=== PATIENT | male | born 1985 | race Caucasian/White ===

== ENCOUNTER 2016-08-25 09:45 | Day surgery (SDC) | payer OTHER ==
[~2016-08-25 09:45] MED LIST: Buffered Lidocaine 0.9% SYRIN* 5 ML/SYR SYRINGE INTRADERM ONE; Buffered Lidocaine 0.9% SYRIN* 5 ML/SYR SYRINGE ONE; Clindamycin 900 MG IVPREMIX(* 900 MG/50 ML SDV IV ONE; Ketorolac INJ* 30 MG/ML 1 ML VIAL ONE; Sodium Citrate/Citric Acid* 15 ML UDC ONE; Sodium Citrate/Citric Acid* 15 ML UDC PO ONE
[2016-08-25] MEDS ORDERED: Bupivacaine 0.25% EPI 200,000* 30 ML SDV ONE (10:32)
[2016-08-25] MEDS ORDERED: Midazolam* 1 MG/ML 2 ML VIAL (2 MG) ONE (10:42)
[2016-08-25] MEDS ORDERED: fentaNYL* 50 MCG/ML 2 ML VIAL (100 MCG VIAL) ONE ×4 (10:42→14:37)
[2016-08-25] MEDS ORDERED: Atracurium* 10 MG/ML 10 ML VIAL ONE (10:43)
[2016-08-25] MEDS ORDERED: Dexamethasone IV* 4 MG/ML 1 ML (4 MG) ONE (10:43)
[2016-08-25] MEDS ORDERED: Neostigmine Methylsulfate* 2 MG/2 ML SYRINGE ONE (10:43)
[2016-08-25] MEDS ORDERED: Lidocaine 2% PF * 5 ML VIAL ONE (10:43)
[2016-08-25] MEDS ORDERED: Glycopyrrolate IV* 0.2 MG/ML 1 ML VIAL ONE (10:43)
[2016-08-25] MEDS ORDERED: Propofol* 10 MG/ML 20 ML BTL IV PUSH ONE (10:43)
[2016-08-25] MEDS ORDERED: Ondansetron INJ* 2 MG/ML VIAL IV PRN (11:26)
--- NOTE | 2016-08-25 12:06 | PN ---
Progress Note - Progress Note Date of Service: 08/25/16 Note: Brief Operative Note: Preop Dx: Symptomatic cholelithiasis Postop Dx: same Procedure: Laparoscopic cholecystectomy Anesthesia: GET Surgeon: Brittany Asst: MARCO Shen; DAVID Aggarwal EBL: 30 ml Fluids: 1300 ml RL Drains: none Specimen: Gallbladder Findings: dictated
[2016-08-25] MEDS ORDERED: Ondansetron INJ* 2 MG/ML VIAL ONE (12:10)
[2016-08-25] MEDS: fentaNYL* 50 MCG/ML 2 ML VIAL (100 MCG VIAL) IV PRN ×5 (12:11→14:39)
[2016-08-25] MEDS ORDERED: HYDROcodone/ACETAMIN 5-325 MG* 1 TAB PO PRN (12:11)
[2016-08-25] MEDS ORDERED: HYDROcodone/ACETAMIN 5-325 MG* 1 TAB ONE ×2 (13:05→13:58)
[2016-08-25] MEDS ORDERED: HYDROcodone/ACETAMIN 5-325 MG* 1 TAB PO ONE (13:57)
[2016-08-25] MEDS ORDERED: DiMENhydriNATE IV* 50 MG/ML VIAL ONE (15:25)
[2016-08-25 15:27] VITALS: BP 102/62
--- NOTE | 2016-08-25 15:50 | OP ---
CC: [facility] * DATE OF OPERATION: 08/25/16 - SDS DATE OF : 89 SURGEON: Lucas Soto MD MUSEUM DIRECTOR: MARCO King ANESTHESIOLOGIST: Dr. Randy Puckett ANESTHESIA: General anesthetic, local infiltration. PRE-OP DIAGNOSIS: Biliary colic. POST-OP DIAGNOSIS: Biliary colic. OPERATIVE PROCEDURE: Laparoscopic cholecystectomy. DESCRIPTION OF PROCEDURE: The patient was supine in the operating room table. After adequate general anesthetic, compression stocking, Estella Hugger warmer, intravenous antibiotics, the abdomen was clipped and prepped with antiseptic and draped in a sterile fashion. Local infiltrative anesthesia was administered and a small umbilical incision was created. A blunt port cannula was placed. Insufflation was carried out with carbon dioxide. Additional cannulae, 12-mm subxiphoid, and 5-mm right upper quadrant, right anterior axillary line were placed through small stab wounds under direct vision. Gallbladder was tented upward, areolar tissue was taken down off the gallbladder , off the cystic duct and off the cystic artery which were both readily identified, clipped, and divided. The common bile duct was seen and kept out of harm's way. The gallbladder was taken off the liver bed using electrocautery. Hemostasis was obtained using electrocautery. There was no spillage. The gallbladder was removed through the subxiphoid port without difficulty. The operative field was hemostatic. The pneumoperitoneum was allowed to escape. The cannulae were removed. The umbilical fascia was closed with 0-Polysorb and skin with 5-0 Polysorb in all cases followed by Steri- Strips. He tolerated the procedure well, was brought to Recovery in good condition. No complications, no drains. Pathologic specimen gallbladder. Sponge and instrument counts correct. Estimated blood loss is less than 20 mL. [id number]/CPS #: [id number] [facility]
== END 2016-08-25 15:41 | disposition home or self-care (01) ==
LOC: OR 09:45
PROVIDERS: ATTEND Surgery
DX: K81.1 Chronic cholecystitis (principal)
CPT/HCPCS: 88304; A9270-GY; J1100; J1240; J1885; J2250; J2405; J2704; J3010

== ENCOUNTER 2017-01-09 08:57 | Emergency (ER) | payer OTHER ==
[2017-01-09] MEDS ORDERED: Ketorolac INJ* 30 MG/ML 1 ML VIAL IV ONE (09:46)
[2017-01-09] MEDS ORDERED: Ondansetron INJ* 2 MG/ML VIAL IV ONE (09:46)
[2017-01-09] MEDS: NS 0.9% 1000 ML* 2,000 ML IV ONE (10:30)
--- NOTE | 2017-01-09 10:35 | RAD ---
Indication: Left flank pain. CT of the abdomen and pelvis was performed without oral or IV contrast demonstration. Coronal and sagittal reconstructed images were obtained. The lung bases demonstrate no pleural fluid, nodules or masses. Heart is of normal size without evidence of pericardial Liver is normal in size. No focal lesions or intrahepatic ductal dilatation is noted. Patient status post cholecystectomy. The spleen is mildly enlarged. No focal lesions are noted in the spleen. Pancreas demonstrates no mass or pancreatic lesion. No adrenal lesions are noted. The left kidney demonstrates fullness of left renal collecting system. There is a tiny calculus of the left ureterovesicular junction measuring approximately 2 mm. The right ureter is otherwise unremarkable. The bladder is markedly. The patient status post appendectomy. No hernias are noted. IMPRESSION: 2 mm calculus in the left ureterovesicular Junction with mild fullness of left renal collecting system. Postoperative changes in the right lower quadrant. Mild splenomegaly. Patient is status post cholecystectomy.
[2017-01-09 10:48] LABS: Hematocrit 46 % (42-52); Hemoglobin 15.9 g/dl (14.0-18.0); Mean Corpuscular HGB Conc 35 g/dl (31-36); Mean Corpuscular Hemoglobin 29 pg (27-31); Mean Corpuscular Volume 83 fL (80-94); Mean Platelet Volume 9 um3 (7.4-10.4); Red Blood Count 5.53 10^6/ul (4.0-5.4); Red Cell Distribution Width 13 % (10.5-15); White Blood Count 8.8 10^3/ul (3.5-10.8)
[2017-01-09 10:58] LABS: ALT 24 U/L (7-52); AST 26 U/L (13-39); Albumin 4.7 g/dL (3.2-5.2); Alkaline Phosphatase 57 U/L (34-104); Anion Gap 5 mmol/L (2-11); Blood Urea Nitrogen 15 mg/dL (6-24); C Reactive Protein < 1.00 mg/L (< 5.00); CO2 Carbon Dioxide 28 mmol/L (22-32); Calcium 9.8 mg/dL (8.6-10.3); Chloride 105 mmol/L (101-111); EGFR African American 158.3 (>60); EGFR Non-African American 123.1 (>60); Globulin 2.2 g/dL (2-4); Glucose 96 mg/dL (70-100); Lipase 50 U/L (11.0-82.0); Potassium 4.1 mmol/L (3.5-5.0); Sodium 138 mmol/L (133-145); Total Protein 6.9 g/dL (6.4-8.9)
[2017-01-09 11:57] LABS: Urine Bacteria Absent (Absent); Urine Bilirubin Negative (Negative); Urine Glucose Negative (Negative); Urine Nitrite Negative (Negative)
[2017-01-09] MEDS ORDERED: Morphine INJ* 4 MG/ML 1 ML CARPUJECT IV ONE (12:43)
[2017-01-09] MEDS ORDERED: Tamsulosin CAP* 0.4 MG PO ONE (13:02)
[2017-01-09 13:23] VITALS: BP 150/74
--- NOTE | 2017-01-09 18:35 | ED ---
Derek Valverde Alfonso, scribed for Blaise Sidhu MD on 01/09/17 at 1012 . Abdominal Pain/Male - HPI Summary HPI Summary: This patient is a 31 year old M presenting to [facility] with a chief complaint of left flank pain since 90 minutes ago. The patient rates the sharp and throbbing pain 8/10 in severity. Symptoms aggravated and alleviated by nothing. Patient reports N/V, urinary retention, and hematuria. - History of Current Complaint Chief Complaint: EDAbdPain Stated Complaint: LT FLANK PAIN,URINATING BLOOD Time Seen by Provider: 01/09/17 09:15 Hx Obtained From: Patient Onset/Duration: Sudden Onset, Lasting Minutes - 90, Still Present Timing: Constant Severity Currently: Severe Pain Intensity: 8 Pain Scale Used: 0-10 Numeric Location: Flank - L Character: Sharp, Other: - Throbbing Aggravating Factor(s): Nothing Alleviating Factor(s): Nothing Associated Signs And Symptoms: Positive: Other - N/V, urinary retention, and hematuria. - Allergies/Home Medications Allergies/Adverse Reactions: Allergies Allergy/AdvReac Type Severity Reaction Status Date / Time Penicillins Allergy Rash Verified 08/25/16 09:57 PMH/Surg Hx/FS Hx/Imm Hx Endocrine/Hematology History: Denies: Hx Diabetes, Hx Thyroid Disease Cardiovascular History: Denies: Hx Hypertension, Other Cardiovascular Problems/Disorders Respiratory History: Denies: Hx Asthma, Hx Chronic Obstructive Pulmonary Disease (COPD), Other Respiratory Problems/Disorders GI History: Denies: Hx Ulcer, Other GI Disorders History: Reports: Hx Kidney Stones - SINCE 2009 and currently Denies: Other Problems/Disorders Sensory History: Reports: Hx Contacts or Glasses - glasses Denies: Hx Hearing Aid Opthamlomology History: Reports: Hx Contacts or Glasses - glasses Neurological History: Denies: Other Neuro Impairments/Disorders - Surgical History Surgery Procedure, Year, and Place: appendectomy, , 2005 ight shoulder surgery x2 2002, 2003 Hx Anesthesia Reactions: No Infectious Disease History: No Infectious Disease History: Denies: Hx Hepatitis, Hx Human Immunodeficiency Virus (HIV), Traveled Outside the [place] in Last 30 Days - Family History Known Family History: Positive: Other - reviewed & noncontributory - Social History Alcohol Use: Weekly Hx Substance Use: No Substance Use Type: Reports: None Hx Tobacco Use: No Smoking Status (MU): Never Smoked Tobacco Review of Systems Negative: Fever Positive: Abdominal Pain - L flank, Vomiting Positive: other - urinary retention, and hematuria. All Other Systems Reviewed And Are Negative: Yes Physical Exam - Summary Physical Exam Summary: VITAL SIGNS: Reviewed. GENERAL: Patient is a well-developed and nourished male who is lying in pain distress in the stretcher. Patient is not in any acute respiratory distress. HEAD AND FACE: Normocephalic and atraumatic. EYES: PERRLA, EOMI x 2, No injected conjunctiva. EARS: Hearing grossly intact. Ear canals and tympanic membranes are WNL. MOUTH: Oropharynx within normal limits. NECK: Supple, trachea is midline, no adenopathy, no JVD. CHEST: Symmetric, no tenderness at palpation LUNGS: Clear to auscultation bilaterally. No wheezing or crackles. CVS: RRR, S1 and S2 present, no murmurs or gallops appreciated. ABDOMEN: Soft, Left CVA tenderness. No signs of distention. Positive bowel sounds. No rebound no guarding, and no masses palpated. No abdominal bruit or pulsations. EXTREMITIES: FROM in all major joints, no edema, no cyanosis or clubbing. NEURO: Alert and oriented x 3. No acute neurological deficits. Speech is normal. SKIN: Dry and warm Triage Information Reviewed: Yes Vital Signs On Initial Exam: Initial Vitals Temp Pulse Resp BP Pulse Ox 97.0 F 80 16 141/84 99 01/09/17 08:58 01/09/17 08:58 01/09/17 08:58 01/09/17 08:58 01/09/17 08:58 Vital Signs Reviewed: Yes - Allen Coma Scale Coma Scale Total: 15 Diagnostics - Vital Signs Vital Signs Temp Pulse Resp BP Pulse Ox 01/09/17 08:58 97.0 F 80 16 141/84 99 - Laboratory Result Diagrams: 01/09/17 10:15 01/09/17 10:15 Lab Statement: Any lab studies that have been ordered have been reviewed, and results considered in the medical decision making process. - CT A/P CT Interpretation Completed By: Radiologist - 2 mm calculus in the left ureterovesicular Junction with mild fullness of left renal collecting system. Postoperative changes in the right lower quadrant. Mild splenomegaly. Patient is status post cholecystectomy. ED physician has reviewed this radiology report and agrees. Abdominal Pain Fem Course/Dx - Course Assessment/Plan: This patient is a 31 year old M presenting to [facility] with a chief complaint of left flank pain since 90 minutes ago. The patient rates the sharp and throbbing pain 8/10 in severity. Symptoms aggravated and alleviated by nothing. Patient reports N/V, urinary retention, and hematuria. CT A/P reveals, per radiologist, 2 mm calculus in the left ureterovesicular Junction with mild fullness of left renal collecting system. Postoperative changes in the right lower quadrant. Mild splenomegaly. Patient is status post cholecystectomy. ED physician has reviewed this radiology report and agrees. Test results with no significant abnormalities and urinalysis negative for UTI. In the ED course the patient was given IV fluids, toradol for the pain, and Flomax. After this, his symptoms improved, but hedeveloped some more pain, therefore he was given morphine. After morphine he was asymptomatic. He was observed for a couple of hours and his symptoms did not return. Therefore, the patient will be discharged with prescription for Zofran, Percocet, and Flomax, and follow up from Urology and PCP. The patient is agreeable with this plan. The patient is hemodynamically stable, alert and oriented x3. - Diagnoses Provider Diagnoses: Kidney stone Discharge - Discharge Plan Condition: Stable Disposition: HOME Prescriptions: Ondansetron TAB* [Zofran 4 MG Tab*] 4 mg PO Q6H PRN #10 tab PRN Reason: Vomiting oxyCODONE/Acetamin 5/325 MG* [Percocet 5/325 TAB*] 1 tab PO Q6H PRN #12 tab MDD 4 PRN Reason: Pain Tamsulosin HCl [Flomax] 0.4 mg PO PC #7 cap Patient Education Materials: Kidney Stones (ED) Referrals: Marlene Garibay DO [Primary Care Provider] - 3 Days Jose Angel Bruno MD [Medical Doctor] - 3 Days Additional Instructions: RETURN TO THE EMERGENCY DEPARTMENT FOR CHANGING OR WORSENING SYMPTOMS. The documentation as recorded by the Derek borjas Alfonso accurately reflects the service I personally performed and the decisions made by Nahum shu Walter, MD.
== END 2017-01-09 13:21 | disposition home or self-care (01) ==
LOC: ED 08:57
DX: N20.0 Calculus of kidney (principal); Z87.442 Personal history of urinary calculi; R16.1 Splenomegaly, not elsewhere classified; Z90.49 Acquired absence of other specified parts of digestive tract; R33.9 Retention of urine, unspecified; R31.9 Hematuria, unspecified; R11.2 Nausea with vomiting, unspecified; Z88.0 Allergy status to penicillin
CPT/HCPCS: 36415; 74176; 80053; 81003; 81015; 83690; 85025; 86140; 96374; 96375; 99283; J1885; J2270; J2405

== ENCOUNTER 2018-01-31 13:09 | Emergency (ER) | payer OTHER ==
--- NOTE | 2018-01-31 13:15 | ED ---
Skin Complaint - HPI Summary HPI Summary: The pt is a 32 y/o male presenting to [facility] c/o hydrofluoric acid exposure on his distal bilateral upper extremities prior to arrival.The acid was dilute (1: 100). He denies UE pain, CP, tingling, and numbness. The cloth lab coat and gloves he had at the time of the accident are intact. He immediate rinsed it with water and applied a calcium-containing gel on the exposure site. Home Medications Medication Instructions Recorded Confirmed Type Sabina Carbonate TAB* 900 mg PO QPM 08/24/16 08/25/16 History Hydrocodone/Acetaminophen [[place] 2 tab PO Q4HR PRN #20 tab MDD 8 08/25/16 Rx 5-325 mg] Ondansetron TAB* [Zofran 4 MG Tab*] 4 mg PO Q6H PRN #10 tab 01/09/17 Rx Tamsulosin HCl [Flomax] 0.4 mg PO PC #7 cap 01/09/17 Rx oxyCODONE/Acetamin 5/325 MG* 1 tab PO Q6H PRN #12 tab MDD 4 01/09/17 Rx [Percocet 5/325 TAB*] Omeprazole CAP* [Prilosec CAP* 20 20 mg PO BID #30 cap.dr 10/29/17 Rx MG] Ondansetron ODT TAB* [Zofran 4 MG 4 mg PO Q6H PRN #10 tab.odt 10/29/17 Rx Odt TAB*] - History of Current Complaint Stated Complaint: EXPOSURE TO ACID Hx Obtained From: Patient Onset/Duration: Started Minutes Ago - CLINICAL ABSTRACTOR Onset Severity: Mild Current Severity: None Pain Intensity: 0 Pain Scale Used: 0-10 Numeric Skin Location: Hand, Other: - bilateral wrists Aggravating Symptom(s): Nothing Alleviating Symptom(s): Nothing Related History: Other: - Hydroflouric acid exposure - Allergy/Home Medications Allergies/Adverse Reactions: Allergies Allergy/AdvReac Type Severity Reaction Status Date / Time Penicillins Allergy Severe Anaphylatic Verified 10/29/17 13:18 Shock PMH/Surg Hx/FS Hx/Imm Hx Previously Healthy: No Endocrine/Hematology History: Denies: Hx Diabetes, Hx Thyroid Disease Cardiovascular History: Denies: Hx Hypertension, Other Cardiovascular Problems/Disorders Respiratory History: Denies: Hx Asthma, Hx Chronic Obstructive Pulmonary Disease (COPD), Other Respiratory Problems/Disorders GI History: Denies: Hx Ulcer, Other GI Disorders History: Reports: Hx Kidney Stones - SINCE 2009 and currently Denies: Hx Renal Disease, Other Problems/Disorders Sensory History: Reports: Hx Contacts or Glasses - glasses Denies: Hx Hearing Aid Opthamlomology History: Reports: Hx Contacts or Glasses - glasses Neurological History: Denies: Other Neuro Impairments/Disorders - Cancer History Cancer Type, Location and Year: None reported - Surgical History Surgery Procedure, Year, and Place: appendectomy, , 2005 ight shoulder surgery x2 2002, 2003 Hx Anesthesia Reactions: No Infectious Disease History: Denies: Hx Hepatitis, Hx Human Immunodeficiency Virus (HIV) - Family History Known Family History: Negative: Hypertension, Diabetes - Social History Occupation: Student Lives: Dormitory/Roommates Alcohol Use: Daily Alcohol Amount: 1 -2 drinks Hx Substance Use: No Substance Use Type: Reports: None Hx Tobacco Use: No Smoking Status (MU): Never Smoked Tobacco Review of Systems Negative: Chest Pain Skin: Negative - Bilateral UE pain at the exposure site Neurological: Negative - Tingling Negative: Numbness All Other Systems Reviewed And Are Negative: Yes Physical Exam - Summary Physical Exam Summary: Constitutional: Well-developed, Well-nourished, Alert. (-) Distressed Skin: Dry, Both hands are cool to touch HENT: Normocephalic; Atraumatic Eyes: Conjunctiva normal Neck: Musculoskeletal ROM normal neck. (-) JVD, (-) Stridor, (-) Tracheal deviation Cardio: Rhythm regular, rate normal, Heart sounds normal; Intact distal pulses; The pedal pulses are 2+ and symmetric. Radial pulses are 2+ and symmetric. (-) Murmur Pulmonary/Chest wall: Effort normal. (-) Respiratory distress, (-) Wheezes, (-) Rales Abd: Soft, (-) epigastric tenderness, (-) Distension, (-) Guarding, (-) Rebound Musculoskeletal: (-) Edema, Capillary refill is less than 2 seconds Lymph: (-) Cervical adenopathy Neuro: Alert, Oriented x3 Psych: Mood and affect Normal Triage Information Reviewed: Yes Vital Signs On Initial Exam: Initial Vital Signs Temp 99.2 F 01/31/18 13:10 Pulse 94 01/31/18 13:10 Resp 20 01/31/18 13:10 BP 154/84 01/31/18 13:10 Pulse Ox 97 01/31/18 13:10 Vital Signs Reviewed: Yes Diagnostics - Laboratory Result Diagrams: 01/31/18 13:37 01/31/18 15:37 Lab Statement: Any lab studies that have been ordered have been reviewed, and results considered in the medical decision making process. - EKG 13:48 Cardiac Rate: NL - 82 bpm EKG Rhythm: Sinus Rhythm Summary of EKG Findings: No STEMI. Re-Evaluation - Re-Evaluation First Eval Re-Evaluation Time: 13:21 Change: Unchanged Course/Dx - Course Course Of Treatment: A 32 year-old M presents to the ED with a CC of hydrofluoric acid exposure on his bilateral upper extremities prior to arrival. The acid was dilute (1:100). He denies UE pain, CP, tingling, and numbness. The cloth lab coat and gloves he had at the time of the accident are intact. He rubbed calcium gel on the site. A physical exam revealed that both hands are cool to touch and capillary refill is less than 2 seconds. An EKG is unremarkable. There is low probability of wrist exposure. The hydrofluoric acid concentration was 0.5-1 %. Nitrile gloves are protective and he had a lab coat on. Patient will be discharged with a final Dx of hydrofluoric acid exposure. Pt is agreeable with this plan. Allergies noted. - Diagnoses Provider Diagnoses: Accidental exposure to hydrofluoric acid Discharge - Sign-Out/Discharge Documenting (check all that apply): Patient Departure - DC - Discharge Plan Condition: Stable Disposition: HOME Patient Education Materials: Chemical Skin Burn (ED) Referrals: Marlene Garibay DO [Primary Care Provider] - [facility] - [place] [facility] [Medical Doctor] - Additional Instructions: Follow up with [facility] in 1-2 days. Return to the emergency room in case of any blistering. - Billing Disposition and Condition Condition: STABLE Disposition: Home - Attestation Statements Document Initiated by Scribe: Yes Documenting Scribe: Kimber Grant Provider For Whom Scribe is Documenting (Include Credential): Dr. Archie Miguel MD Scribe Attestation: Kimber Valverde , scribed for Dr. Archie Miguel MD on 01/31/18 at 2135. Scribe Documentation Reviewed: Yes Provider Attestation: The documentation as recorded by the scribe, Kimber Grant accurately reflects the service I personally performed and the decisions made by me, Dr. Archie Miguel MD Status of Scribe Document: Viewed
[2018-01-31 13:58] LABS: ABS Basophils 0 10^3/ul (0-0.2); ABS Eosinophils 0.1 10^3/ul (0-0.6); ABS Lymphocytes 1.1 10^3/ul (1.0-4.8); ABS Monocytes 0.2 10^3/ul (0-0.8); ABS Neutrophils 4.9 10^3/ul (1.5-7.7); ABS Nucleated RBC 0 10^3/ul; Eosinophil % 0.8 %; Hematocrit 46 % (42-52); Hemoglobin 15.5 g/dl (14.0-18.0); Lymphocyte % 17.3 %; Mean Corpuscular HGB Conc 34 g/dl (31-36); Mean Corpuscular Hemoglobin 29 pg (27-31); Mean Corpuscular Volume 85 fL (80-94); Mean Platelet Volume 8.5 fL (7.4-10.4); Nucleated Red Blood Cells % 0.1; Platelet Count 183 10^3/ul (150-450); Red Blood Count 5.37 10^6/ul (4.00-5.40); Red Cell Distribution Width 13 % (10.5-15); White Blood Count 6.3 10^3/ul (3.5-10.8)
[2018-01-31 14:15] LABS: EGFR Non-African American 107.3 (>60)
[2018-01-31 14:17] LABS: Urine Appearance Clear; Urine Blood Negative (Negative); Urine Color Straw; Urine Ketones Negative (Negative); Urine Protein Negative (Negative); Urine Specific Gravity 1.004 (1.010-1.030); Urine Urobilinogen Negative (Negative)
[2018-01-31 16:10] LABS: EGFR Non-African American 99.1 (>60)
[2018-01-31 18:12] VITALS: BP 162/96
== END 2018-01-31 17:24 | disposition home or self-care (01) ==
LOC: ED 13:09
DX: Z77.098 Contact with and (suspected) exposure to other hazardous, chiefly nonmedicinal, chemicals (principal); Z88.0 Allergy status to penicillin
CPT/HCPCS: 36415; 80053; 80320; 80329; 81003; 83605; 85025; 93005; 99282; G0480

== ENCOUNTER 2018-04-17 15:48 | Emergency (ER) | payer OTHER ==
[2018-04-17 16:28] LABS: ABS Basophils 0 10^3/ul (0-0.2); ABS Eosinophils 0.1 10^3/ul (0-0.6); ABS Lymphocytes 1.5 10^3/ul (1.0-4.8); ABS Monocytes 0.3 10^3/ul (0-0.8); ABS Neutrophils 5.4 10^3/ul (1.5-7.7); ABS Nucleated RBC 0 10^3/ul; Eosinophil % 1.1 %; Hematocrit 48 % (42-52); Hemoglobin 16.1 g/dl (14.0-18.0); Mean Corpuscular HGB Conc 34 g/dl (31-36); Mean Corpuscular Hemoglobin 29 pg (27-31); Mean Corpuscular Volume 85 fL (80-94); Mean Platelet Volume 7.9 fL (7.4-10.4); Nucleated Red Blood Cells % 0.1; Platelet Count 192 10^3/ul (150-450); Red Cell Distribution Width 13 % (10.5-15); White Blood Count 7.3 10^3/ul (3.5-10.8)
[2018-04-17 16:46] LABS: ALT 30 U/L (7-52); AST 21 U/L (13-39); Albumin 4.9 g/dL (3.2-5.2); Albumin/Globulin Ratio 2.2 (1-3); Alkaline Phosphatase 60 U/L (34-104); Anion Gap 5 mmol/L (2-11); Blood Urea Nitrogen 13 mg/dL (6-24); C Reactive Protein < 1.00 mg/L (<8.01); CO2 Carbon Dioxide 28 mmol/L (22-32); Calcium 9.4 mg/dL (8.6-10.3); Chloride 105 mmol/L (101-111); EGFR African American 135.4 (>60); EGFR Non-African American 111.9 (>60); Globulin 2.2 g/dL (2-4); Glucose 105 mg/dL (70-100); Potassium 3.8 mmol/L (3.5-5.0); Sodium 138 mmol/L (135-145); Total Protein 7.1 g/dL (6.4-8.9)
[2018-04-17 17:09] LABS: Urine Appearance Clear; Urine Bilirubin Negative (Negative); Urine Blood Negative (Negative); Urine Color Yellow; Urine Glucose Negative (Negative); Urine Ketones Negative (Negative); Urine Nitrite Negative (Negative); Urine Protein Negative (Negative); Urine Specific Gravity 1.009 (1.010-1.030); Urine Urobilinogen Negative (Negative)
[2018-04-17] MEDS ORDERED: NS 0.9% 1000 ML** 1,000 ML IV ONE (17:21)
[2018-04-17] MEDS ORDERED: HYDROmorphone INJ1* 1 MG/ML SYRINGE IV SLOW PU ONE (17:21)
[2018-04-17] MEDS ORDERED: Ondansetron INJ* 2 MG/ML VIAL IV ONE (17:21)
[2018-04-17] MEDS ORDERED: Ketorolac INJ* 30 MG/ML 1 ML VIAL IV PUSH ONE (17:21)
--- NOTE | 2018-04-17 17:21 | ED ---
GI/ HPI - HPI Summary HPI Summary: Bartolo is a 32 y/o M present to ED with complaints of left flank pain onsetting this morning at 0600. He notes that the pain awoke him, he states that pain has been constant. Hematuria, difficulty voiding are also reported. PMHx of kidney stones; however, he notes that with previous episodes the pain would be intermittent as opposed to constant. Pain is described as a pressure. He notes that movement, deep breaths aggravates Sx, lying still alleviates pain. Patient took 800 mg ibuprofen at 1000 today. PSHx of appendectomy, two shoulder repairs , cholecystectomy. On triage, pain is rated 8/10. Home medications and allergies are reviewed. - History of Current Complaint Chief Complaint: EDFlankPain Time Seen by Provider: 04/17/18 17:13 Stated Complaint: FLANK PAIN Hx Obtained From: Patient Onset/Duration: Started Hours Ago - ONSET 0600 TODAY, Still Present Timing: Constant, Lasting Hours - ONSET 0600 TODAY Severity: Severe - 8/10 Current Severity: Severe - 8/10 Pain Intensity: 8 Location of Pain: Flank - LEFT Pain Characteristics: Pressure Associated Signs and Symptoms: Positive: Hematuria, Flank Pain - LEFT, Other: - POSITIVE - DIFFICULTY VOIDING Aggravating Factor(s): Movement, Deep Breaths Alleviating Factor(s): Rest - lying still - Allergy/Home Medications Allergies/Adverse Reactions: Allergies Allergy/AdvReac Type Severity Reaction Status Date / Time Penicillins Allergy Severe Anaphylatic Verified 04/17/18 15:59 Shock PMH/Surg Hx/FS Hx/Imm Hx Endocrine/Hematology History: Denies: Hx Diabetes, Hx Thyroid Disease Cardiovascular History: Denies: Hx Hypertension, Other Cardiovascular Problems/Disorders Respiratory History: Denies: Hx Asthma, Hx Chronic Obstructive Pulmonary Disease (COPD), Other Respiratory Problems/Disorders GI History: Denies: Hx Ulcer, Other GI Disorders History: Reports: Hx Kidney Stones - SINCE 2009 and currently Denies: Hx Renal Disease, Other Problems/Disorders Sensory History: Reports: Hx Contacts or Glasses - glasses Denies: Hx Hearing Aid Opthamlomology History: Reports: Hx Contacts or Glasses - glasses Neurological History: Denies: Other Neuro Impairments/Disorders - Cancer History Cancer Type, Location and Year: None reported - Surgical History Surgery Procedure, Year, and Place: appendectomy 2004 right shoulder surgery x2 2002, 2003. CHOLECYSTECTOMY Hx Anesthesia Reactions: No Infectious Disease History: No Infectious Disease History: Denies: Hx Hepatitis, Hx Human Immunodeficiency Virus (HIV), Traveled Outside the [place] in Last 30 Days - Family History Known Family History: Negative: Hypertension, Diabetes - Social History Alcohol Use: Daily Alcohol Amount: 1 -2 drinks Hx Substance Use: No Substance Use Type: Reports: None Hx Tobacco Use: No Smoking Status (MU): Never Smoked Tobacco Review of Systems Negative: Fever - ON VITALS, TEMP IS 98.1 F Gastrointestinal: Other - POSITIVE - DIFFICULTY VOIDING Positive: flank pain - LEFT, hematuria All Other Systems Reviewed And Are Negative: Yes Physical Exam - Summary Physical Exam Summary: Appearance: The patient is well-nourished in no acute distress. Skin: The skin is warm and dry and skin color reflects adequate perfusion. HEENT: The head is normocephalic and atraumatic. The pupils are equal and reactive. The conjunctivae are clear and without drainage. Nares are patent and without drainage. Mouth reveals moist mucous membranes and the throat is without erythema and exudate. The external ears are intact. The ear canals are patent and without drainage. The tympanic membranes are intact. Neck: The neck is supple with full range of motion and non-tender. There are no carotid bruits. There is no neck vein distension. Respiratory: Chest is non-tender. Lungs are clear to auscultation and breath sounds are symmetrical and equal. Cardiovascular: Heart is regular rate and rhythm. There is no murmur or rub auscultated. There is no peripheral edema and pulses are symmetrical and equal. Abdomen: The abdomen is soft and non-tender. There are normal bowel sounds heard in all four quadrants and there is no organomegaly palpated. Musculoskeletal: Paraspinal lumbar tenderness is noted. Extremities are non- tender with full range of motion. There is good capillary refill. There is no peripheral edema or calf tenderness elicited. Neurological: Patient is alert and oriented to person, place and time. The patient has symmetrical motor strength in all four extremities. Cranial nerves are grossly intact. Deep tendon reflexes are symmetrical and equal in all four extremities. Psychiatric: The patient has an appropriate affect and does not exhibit any anxiety or depression. Triage Information Reviewed: Yes Vital Signs On Initial Exam: Initial Vitals Temp Pulse Resp BP Pulse Ox 98.1 F 94 16 135/90 97 04/17/18 15:57 04/17/18 15:57 04/17/18 15:57 04/17/18 15:57 04/17/18 15:57 Vital Signs Reviewed: Yes Diagnostics - Vital Signs Vital Signs Temp Pulse Resp BP Pulse Ox 04/17/18 15:57 98.1 F 94 16 135/90 97 - Laboratory Lab Results: Lab Results 04/17/18 04/17/18 04/17/18 Range/Units 16:20 16:20 16:20 WBC 7.3 (3.5-10.8) 10^3/ul RBC 5.60 H (4.00-5.40) 10^6/ul Hgb 16.1 (14.0-18.0) g/dl Hct 48 (42-52) % MCV 85 (80-94) fL MCH 29 (27-31) pg MCHC 34 (31-36) g/dl RDW 13 (10.5-15) % Plt Count 192 (150-450) 10^3/ul MPV 7.9 (7.4-10.4) fL Neut % (Auto) 74.0 % Lymph % (Auto) 20.0 % [place] % (Auto) 4.5 % Eos % (Auto) 1.1 % Baso % (Auto) 0.4 % Absolute Neuts (auto) 5.4 (1.5-7.7) 10^3/ul Absolute Lymphs (auto) 1.5 (1.0-4.8) 10^3/ul Absolute Monos (auto) 0.3 (0-0.8) 10^3/ul Absolute Eos (auto) 0.1 (0-0.6) 10^3/ul Absolute Basos (auto) 0 (0-0.2) 10^3/ul Absolute Nucleated RBC 0 10^3/ul Nucleated RBC % 0.1 Sodium 138 (135-145) mmol/L Potassium 3.8 (3.5-5.0) mmol/L Chloride 105 (101-111) mmol/L Carbon Dioxide 28 (22-32) mmol/L Anion Gap 5 (2-11) mmol/L BUN 13 (6-24) mg/dL Creatinine 0.81 (0.67-1.17) mg/dL Est GFR ( Amer) 135.4 (>60) Est GFR (Non-Af Amer) 111.9 (>60) BUN/Creatinine Ratio 16.0 (8-20) Glucose 105 H (70-100) mg/dL Lactic Acid 0.6 (0.5-2.0) mmol/L Calcium 9.4 (8.6-10.3) mg/dL Total Bilirubin 0.80 (0.2-1.0) mg/dL AST 21 (13-39) U/L ALT 30 (7-52) U/L Alkaline Phosphatase 60 (34-104) U/L C-Reactive Protein < 1.00 (<8.01) mg/L Total Protein 7.1 (6.4-8.9) g/dL Albumin 4.9 (3.2-5.2) g/dL Globulin 2.2 (2-4) g/dL Albumin/Globulin Ratio 2.2 (1-3) Lipase 67 (11.0-82.0) U/L Urine Color Urine Appearance Urine pH (5-9) Ur Specific [place] (1.010-1.030) Urine Protein (Negative) Urine Ketones (Negative) Urine Blood (Negative) Urine Nitrate (Negative) Urine Bilirubin (Negative) Urine Urobilinogen (Negative) Ur Leukocyte Esterase (Negative) Urine Glucose (Negative) 04/17/18 Range/Units 16:43 WBC (3.5-10.8) 10^3/ul RBC (4.00-5.40) 10^6/ul Hgb (14.0-18.0) g/dl Hct (42-52) % MCV (80-94) fL MCH (27-31) pg MCHC (31-36) g/dl RDW (10.5-15) % Plt Count (150-450) 10^3/ul MPV (7.4-10.4) fL Neut % (Auto) % Lymph % (Auto) % [place] % (Auto) % Eos % (Auto) % Baso % (Auto) % Absolute Neuts (auto) (1.5-7.7) 10^3/ul Absolute Lymphs (auto) (1.0-4.8) 10^3/ul Absolute Monos (auto) (0-0.8) 10^3/ul Absolute Eos (auto) (0-0.6) 10^3/ul Absolute Basos (auto) (0-0.2) 10^3/ul Absolute Nucleated RBC 10^3/ul Nucleated RBC % Sodium (135-145) mmol/L Potassium (3.5-5.0) mmol/L Chloride (101-111) mmol/L Carbon Dioxide (22-32) mmol/L Anion Gap (2-11) mmol/L BUN (6-24) mg/dL Creatinine (0.67-1.17) mg/dL Est GFR ( Amer) (>60) Est GFR (Non-Af Amer) (>60) BUN/Creatinine Ratio (8-20) Glucose (70-100) mg/dL Lactic Acid (0.5-2.0) mmol/L Calcium (8.6-10.3) mg/dL Total Bilirubin (0.2-1.0) mg/dL AST (13-39) U/L ALT (7-52) U/L Alkaline Phosphatase (34-104) U/L C-Reactive Protein (<8.01) mg/L Total Protein (6.4-8.9) g/dL Albumin (3.2-5.2) g/dL Globulin (2-4) g/dL Albumin/Globulin Ratio (1-3) Lipase (11.0-82.0) U/L Urine Color Yellow Urine Appearance Clear Urine pH 7.0 (5-9) Ur Specific [place] 1.009 L (1.010-1.030) Urine Protein Negative (Negative) Urine Ketones Negative (Negative) Urine Blood Negative (Negative) Urine Nitrate Negative (Negative) Urine Bilirubin Negative (Negative) Urine Urobilinogen Negative (Negative) Ur Leukocyte Esterase Negative (Negative) Urine Glucose Negative (Negative) Result Diagrams: 04/17/18 16:20 04/17/18 16:20 Lab Statement: Any lab studies that have been ordered have been reviewed, and results considered in the medical decision making process. - CT abd/pel ct CT Interpretation Completed By: Radiologist Summary of CT Findings: IMPRESSION: 1. SMALL BILATERAL RENAL CALCULI, NO EVIDENCE FOR HYDRONEPHROSIS. 2. MILD SPLENOMEGALY, UNCHANGED. 3. STATUS POST CHOLECYSTECTOMY AND APPENDECTOMY. THIS REPORT WAS REVIEWED BY ED PHYSICIAN. Re-Evaluation - Re-Evaluation First Eval Re-Evaluation Time: 18:44 Comment: Results of labs and tests were discussed with patient, he will be discharged to home with follow up to PCP and urologist. GIGU Course/Dx - Course Course Of Treatment: Mr. Daigle presented with a concern that he was passing another kidney stone. He complained of left flank pain. He denied any fever or dysuria. Clinically he did not act like a kidney stone. He preferred to stay still, his abdomen was nontender and his paralumbar area on the left was tender. Labs and urinalysis were obtained which were negative. CT scan showed no acute pathology although he does have bilateral small kidney stones. I recommended symptomatic treatment and follow-up if not improved. - Diagnoses Provider Diagnoses: Left flank pain Discharge - Sign-Out/Discharge Documenting (check all that apply): Patient Departure - DISCHARGE Patient Received Moderate/Deep Sedation with Procedure: No - NO PROCEDURES DONE - Discharge Plan Condition: Stable Disposition: HOME Prescriptions: traMADol TAB* [Ultram*] 50 mg PO Q6HR PRN #20 tab MDD 4 PRN Reason: Pain Patient Education Materials: Flank Pain (ED) Referrals: Marlene Garibay DO [Primary Care Provider] - 3 Days Additional Instructions: RETURN TO ED FOR ANY NEW OR WORSENING SYMPTOMS. FOLLOW UP WITH PRIMARY CARE PHYSICIAN WITHIN 2-3 DAYS. - Billing Disposition and Condition Condition: STABLE Disposition: Home - Attestation Statements Document Initiated by Preeti: Yes Documenting Scribe: LEXA SMITH Provider For Whom Preeti is Documenting (Include Credential): JILLIAN GARCIA MD Scribe Attestation: LEXA Valverde, scribed for JILLIAN GARCIA MD on 04/17/18 at 1855. Scribe Documentation Reviewed: Yes Provider Attestation: The documentation as recorded by the LEXA borjas accurately reflects the service I personally performed and the decisions made by me, JILLIAN GARCIA MD Status of Scribe Document: Viewed
[2018-04-17 18:56] VITALS: BP 133/77
== END 2018-04-17 18:55 | disposition home or self-care (01) ==
LOC: ED 15:48
DX: R10.32 Left lower quadrant pain (principal); N20.0 Calculus of kidney; Z87.442 Personal history of urinary calculi; R16.1 Splenomegaly, not elsewhere classified; Z90.49 Acquired absence of other specified parts of digestive tract; Z90.89 Acquired absence of other organs; Z88.0 Allergy status to penicillin
CPT/HCPCS: 36415; 74176; 80053; 81003; 83605; 83690; 85025; 86140; 96374; 96375; 99283; J1170; J1885; J2405